=== PATIENT | female | born 1995 | race Caucasian/White ===

== ENCOUNTER 2016-07-20 14:30 | Day surgery (SDC) | payer BC ==
[~2016-07-20] VITALS: Ht 162.6 cm; Wt 73.5 kg
[2016-07-20] VITALS (9 sets, daily range): BP systolic 107–127; BP diastolic 55–71; PULSE 70–90; TEMP 97.5
[2016-07-20] MEDS ORDERED: TYLENOL 325MG325 MG PO (14:47)
[2016-07-20] MEDS ORDERED: MOTRIN 200200 MG/TAB PO (14:48)
[2016-07-21 01:52] VITALS: BP 133/71; PULSE 110; TEMP 98.5
[2016-07-21 05:52] VITALS: BP 124/66; PULSE 84; TEMP 100.2
[2016-07-21 09:13] VITALS: BP 118/63; PULSE 89; TEMP 97.6
== END 2016-07-21 11:06 | disposition home or self-care (01) ==
LOC: SDCO 14:30 → SURG 14:30 → SDCO 07-21 11:06
DX: K35.80 Unspecified acute appendicitis (principal)
CPT/HCPCS: OP; J1885; J2270; J2405; J2543; J2704; J2710; J2765; J3010; J7030; J7050; Q9967